=== PATIENT | male | born 1935 | race Caucasian/White ===

== ENCOUNTER 2017-01-31 07:38 | Day surgery (SDC) | payer OTHER ==
[2017-01-31] MEDS ORDERED: ceFAZolin 2 GM/SWFI 2 GM/20 ML SYR IVP ONE (07:45)
[2017-01-31] MEDS ORDERED: BACITRACIN IRRIGATION/NS 50,000 UNITS/1,000 ML BTL IRR ONE (07:45)
[2017-01-31] MEDS ORDERED: DIAZEPAM 5 MG TAB PO ONE (07:45)
[2017-01-31] MEDS ORDERED: NS 1,000 ML IV ONE (07:45)
[2017-01-31] MEDS ORDERED: diphenhydrAMINE 25 MG CAP PO ONE (07:45)
--- NOTE | 2017-01-31 08:17 | CPEKG ---
Heart Rate: 60 RR Interval: 1000 P-R Interval: 128 QRSD Interval: 136 QT Interval: 460 QTC Interval: 460 P [place]: 267 QRS [place]: -72 T Wave [place]: -18 EKG Severity - ABNORMAL ECG - EKG Impression: VENTRICULAR-PACED COMPLEXES EKG Impression: PVC EKG Impression: COMPARED WITH PREVIOUS TRACING 09/18/2009, VENTRICULAR PACING NOW PRESENT. Electronically Signed By: Leida Turcios 31-Jan-2017 08:42:45
[2017-01-31 08:32] LABS: % IMMATURE GRANULYOCYTES 0.3 % (0.0-1.1); ABSOLUTE IMMATURE GRANULOCYTES 0.02 10^3/uL (0.00-0.10); ADD DIFF? NO; ADD MORPH? NO; ADD SCAN? NO; ATYPICAL LYMPHOCYTE FLAG 0 (0-99); FRAGMENT RBC FLAG 0 (0-99); HEMATOCRIT 38.2 % (40.0-51.0); HEMOGLOBIN 12.9 g/dL (13.7-17.5); LEFT SHIFT FLG 0 (0-99); LIPEMIA HEMOLYSIS FLAG 90 (0-99); MEAN CELL HEMOGLOBIN 32.3 pg (27.9-34.1); MEAN CELL HEMOGLOBIN CONCENTR. 33.8 g/dL (32.4-36.7); MEAN CELL VOLUME 95.5 fL (81.5-99.8); MEAN PLATELET VOLUME 8.9 fL (8.7-11.7); PLATELET CLUMPS FLAG 0 (0-99); PLATELET COUNT 246 10^3/uL (150-400); RED CELL DISTRIBUTION WIDTH 14.1 % (11.5-15.2)
[2017-01-31 08:42] LABS: INR 1.01 (0.83-1.16); PROTIME(PATIENT) 13.5 SEC (12.0-15.0)
[2017-01-31 09:14] LABS: ANION GAP 9 mEq/L (8-16); CALCIUM 9.1 mg/dL (8.5-10.4); CARBON DIOXIDE 23 mEq/l (22-31); CHLORIDE 110 mEq/L (97-110); CREATININE 1.3 mg/dL (0.7-1.3); GLOMERULAR FILTRATION RATE 53; GLUCOSE 141 mg/dL (70-100); POTASSIUM 4.2 mEq/L (3.5-5.2); SODIUM 142 mEq/L (134-144)
[2017-01-31] MEDS ORDERED: LIDOCAINE 1% 300 MG/30 ML SDV ONE (10:38)
[2017-01-31] MEDS ORDERED: MIDAZOLAM 2 MG/2 ML VIAL ONE (10:39)
[2017-01-31] MEDS ORDERED: LIDO/EPI 1% **for epidural** 30 ML SDV ONE (10:39)
[2017-01-31] MEDS ORDERED: fentaNYL 100 MCG/2 ML INJ ONE (10:39)
[2017-01-31] MEDS ORDERED: BUPIVACAINE 0.5% 30 ML SDV ONE (10:40)
--- NOTE | 2017-01-31 10:43 | PDHPUP ---
History & Physical Update H&P update statement: This history and physical update is based on an assessment of the patient which was completed after admission or registration (within 24 hours), but prior to the surgery/procedure. H&P update: H&P reviewed & patient examined, no change in patient's condition since H&P completed (Generator change. Met with patient. Discussed risks and benfits.)
--- NOTE | 2017-01-31 10:44 | PDPROPOC ---
Sedation Plan of Care Sedation Plan of Care: vital signs stable, mental status noted, patient educated of risks, benefits, alternatives, patient can tolerate sedation ASA Classification: ASA 2 Planned drugs: fentanyl, midazolam Mallampati Score: Class 1 Mallampati Reference Image: Patient passed 3-3-2 rule?: Yes
[2017-01-31] MEDS ORDERED: FLUMAZENIL 0.5 MG/5 ML MDV IVP ONE (11:08)
--- NOTE | 2017-01-31 12:48 | CPEKG ---
Heart Rate: 61 RR Interval: 984 P-R Interval: 172 QRSD Interval: 120 QT Interval: 372 QTC Interval: 375 P [place]: 149 QRS [place]: -66 T Wave [place]: 111 EKG Severity - ABNORMAL ECG - EKG Impression: ATRIAL-PACED COMPLEXES EKG Impression: INCOMPLETE LEFT BUNDLE BRANCH BLOCK EKG Impression: ANTERIOR Q WAVES, POSSIBLY DUE TO ILBBB EKG Impression: COMPARED WITH 01/31/2017 AT 8:15 A.M., ATRIAL PACING NOW PRESENT. VENTRICULAR EKG Impression: PACING ABSENT. Electronically Signed By: Leida Turcios 31-Jan-2017 17:15:29
--- NOTE | 2017-01-31 21:22 | CPIP ---
[f rep st] INVASIVE CARDIAC PROCEDURE DATE OF PROCEDURE: 01/31/2017 PROCEDURE PERFORMED: Pacemaker generator change. INDICATIONS: Pacemaker generator end of life. DESCRIPTION OF PROCEDURE: After obtaining informed consent, patient was brought in the fasting state to the cardiac parking lot laborer. The left subclavian site was sterilely prepped and draped and infiltrated with 2% Xylocaine. Using a 10 blade, an incision was made through the old scar. Using a combination of sharp and blunt dissection and the Bovie catheter, the old pacemaker pocket was entered, and the old device delivered to the field. The device was removed. A bacitracin soaked sponge was placed in the pocket. Leads were tested. Appropriate sensitivities and thresholds were confirmed. The new g enerator was delivered to the field and attached to the leads. Set screws were tightened per industr y standards. The system was coiled into the pocket. The pocket was closed using a 3-layer closure w ith 2-0, 3-0 and Stratafix sutures for the skin. A pressure dressing was applied and the patient was taken to recovery for continued care. COMPLICATIONS: None. Chest x-ray pending. DEVICE PARAMETERS: The new device is an Eluna 8 DR-T, reference #[id number], serial #[id number]. The [facility]ie right ventricular lead is a Setrox S 53, serial #[id number]. The right atrial lead is a [employer] [id number], serial number [id number]. Right ventricular capture was at 0.7 V with a pulse width of 0.4 milliseconds. R waves are 10.7 V with an impedance of 584 ohms. Right atrial sensing is 2.5 mV, capture was at 0.9 V with a pulse width of 0.4 milliseconds. Impedance is 381 ohms. CONCLUSION: Successful pacemaker generator change. The patient was taken to recovery for continued care. /[id number]/MODL
== END 2017-01-31 15:17 | disposition home or self-care (01) ==
LOC: FCATH 07:38
PROVIDERS: ATTEND Internal Medicine Cardiovascular Disease
PROC: 0JPT0PZ Removal of Cardiac Rhythm Related Device from Trunk Subcutaneous Tissue and Fascia, Open Approach (ICD-10-PCS; principal; 2017-01-31)
DX: T82.111A Breakdown (mechanical) of cardiac pulse generator (battery), initial encounter (principal); I49.5 Sick sinus syndrome; I48.91 Unspecified atrial fibrillation; E78.5 Hyperlipidemia, unspecified; I25.10 Atherosclerotic heart disease of native coronary artery without angina pectoris; I10 Essential (primary) hypertension; E11.9 Type 2 diabetes mellitus without complications
CPT/HCPCS: C1785; J0690; J2250; J3010

== ENCOUNTER → 2017-03-11 | Outpatient (CLI) | payer OTHER | LOC: FIMAGING 10:46 | PROVIDERS: ATTEND Internal Medicine | DX: R29.898 Other symptoms and signs involving the musculoskeletal system (principal) ==

== ENCOUNTER → 2017-04-26 | Outpatient (CLI) | payer OTHER ==
[~2017-04-26] MED LIST: IOPAMIDOL (ISOVUE-300) 100 ML BTL ONE
== END ==
LOC: FIMAGING 10:11
PROVIDERS: ATTEND Internal Medicine
DX: G31.9 Degenerative disease of nervous system, unspecified (principal); I67.2 Cerebral atherosclerosis; Z86.73 Personal history of transient ischemic attack (TIA), and cerebral infarction without residual deficits
CPT/HCPCS: 70470; Q9967